=== PATIENT | female | born 1990 | race Caucasian/White ===

== ENCOUNTER 2019-05-26 11:02 | Inpatient (IN) ==
[2019-05-26] MEDS ORDERED: NS 1,000 ML IV ONE ×4 (11:23→14:36)
[2019-05-26 11:49] LABS: BASO# 0.04 X1000 (0.0-0.2); BASO% 0.2 % (0.0-0.8); HEMOGLOBIN 15.8 g/dL (12.0-16.0); IMM GRAN# 0.05 X1000 (0.0-0.04); IMM GRAN% 0.3 % (0.0-0.5); LYMPH# 0.73 X1000 (1.2-3.4); LYMPH% 3.7 % (20.5-51.1); MCH 30.8 PG (27-31); MCHC 35.1 g/dL (33-37); MCV 87.7 FL (81-99); MONO# 0.61 X1000 (0.11-0.59); MONO% 3.1 % (1.7-9.3); MPV 9.3 FL (7.4-10.4); NEUT# 18.24 X1000 (1.4-6.5); NEUT% 92.7 % (42.2-75.2); PLT 333 X1000 (130-400); RBC 5.13 XMIL (4.2-5.4); RDW 12.3 % (11.5-14.5); WBC 19.67 X1000 (4.8-10.8)
[2019-05-26 12:03] LABS: AGAP 16; ALBUMIN 5.1 g/dL (3.5-5.0); ALKALINE PHOSPHATASE 69 U/L (32-104); BUN 19 mg/dL (8-22); CALCIUM 10.3 mg/dL (8.8-10.2); CHLORIDE 105 mmol/L (98-107); COSMO 282; CREATININE 0.9 mg/dL (0.5-0.9); ESTIMATED GFR > 60; GLUCOSE 170 mg/dL (70-104); GOT 20 U/L (10-30); GPT 28 U/L (10-36); POTASSIUM 3.8 mmol/L (3.5-5.1); SODIUM 138 mmol/L (136-145); TCO2 17 mmol/L (25-35); TOTAL PROTEIN 7.8 g/dL (6.3-8.3)
[2019-05-26 13:04] LABS: INR 0.9; PROTIME 12.6 Seconds (11.0-16.0)
[2019-05-26 13:05] LABS: PTT 24.1 Seconds (22.3-41.8)
[2019-05-26] MEDS ORDERED: ZOSYN 3.375 GM in NS 50 ML IV ONE (13:08)
[2019-05-26] MEDS ORDERED: ROCEPHIN 1 GM in NS 50 ML IV ONE (13:08)
[2019-05-26 13:45] LABS: INFLUENZA A NEGATIVE (NEGATIVE); INFLUENZA B NEGATIVE (NEGATIVE)
[2019-05-26 13:52] LABS: CLARITY CLEAR (CLEAR); COLOR YELLOW; URINE BACTERIA NEGATIVE /HFP; URINE CAST NONE SEEN /LPF; URINE CRYSTAL NONE SEEN /HPF; URINE EPITHELIAL CELLS <10 /HPF (<10); URINE SOURCE CATH; URINE WBC <10 /HPF (<10); URINE YEAST PRESENT /HPF
[2019-05-26 13:53] LABS: BILIRUBIN URINE NEGATIVE (NEGATIVE); BLOOD URINE 1+ (NEGATIVE); GLUCOSE URINE NEGATIVE (NEGATIVE); KETONE URINE NEGATIVE (NEGATIVE); LEUKOCYTES URINE NEGATIVE (NEGATIVE); NITRITE URINE NEGATIVE (NEGATIVE); PH URINE 6.5; PROTEIN URINE 2+(100 mg/dL) mg/dL (NEGATIVE); SP GRAVITY URINE 1.005; UROBILINOGEN URINE NORMAL
--- NOTE | 2019-05-26 14:20 | Diag Imaging Result Doc PS360 ---
EXAM: CT ABD/PELVIS W/IV CONT ONLY 05/26/2019 HISTORY: abd pain TECHNIQUE: This exam was performed using automated exposure control, adjustment of mA or kV according to patient size, and/or use of iterative reconstruction technique. COMMENT: There are no previous studies. There is a small focus of fibrosis in the posterior costophrenic sulcus of the right lower lobe. No evidence of acute pulmonary disease is present in the visualized portion of the chest. The liver is hypodense suggesting fatty change. The adrenal glands are not enlarged. The pancreas is unremarkable in appearance. The gallbladder is slightly distended but there are no apparent stones. There is fluid throughout much of the colon and small bowel. The stomach contains fluid as well. The kidneys are without evidence of hydronephrosis or mass. The aorta is not distended. There are some prominent left periaortic nodes one of which measures over 11 mm. There is a 15 mm ileocolic mesenteric node. The appendix is not distended. Pelvis: There is some fluid in the rectum. There is a Mcdowell catheter in the bladder. There is a tiny amount of free fluid in the cul-de-sac. There appear to be bilateral ovarian follicles. There are scattered bone islands in the left femur and pelvis. There is no evidence of acute bony abnormality. IMPRESSION: 1. Hepatic steatosis. 2. Mild mesenteric adenitis. 3. Enterocolitis. Electronically signed by Pino Garg 05/26/2019 2:17 PM
--- NOTE | 2019-05-26 14:37 | PROVIDER DOCUMENTATION ---
This chart was entered by Sehrly Verma Scribe, acting as scribe for Scott Wilson CRNP. HPI-General Adult - General Chief Complaint: N/V/D Stated Complaint: V/D Time Seen by Provider: 05/26/19 11:22 Source: patient Allergies/Adverse Reactions: Patient Allergies Allergy/AdvReac Type Severity Reaction Status Date / Time clarithromycin [From Biaxin] AdvReac NAUSEA/VOMI Verified 05/26/19 11:22 TING Home Medications: Home Medication List Medication Instructions Recorded Confirmed Last Taken Type Fexofenadine [Hanny] 180 mg PO DAILY 05/26/19 05/26/19 Unknown History - History of Present Illness -Gen Adult Nature of Presenting Problems: 28 y/o female presents to ED with N/V/D, weakness, and fatigue onset this morning at 0200. Pt reports she has vomited 4 times and had diarrhea too many times to count. Pt denies pain, except for mild abdominal cramping with diarrhea episodes. Pt is alert and oriented. Location of Pain/Injury: reports: none Pain Radiation: reports: no radiation Quality of Pain: reports: none Severity: reports: mild Onset/Duration: reports: this morning Timing: reports: still present Context/Activities at Onset: reports: none Modifying Factors: improves with: nothing Associated Symptoms: reports: diarrhea, fatigue, nausea, vomiting, weakness Similar Symptoms Previously?: No Recently seen or treated by another doctor?: No Review of Systems - Adult - REVIEW OF SYSTEMS - ADULT Constitutional: reports: fatique. denies: chills, fever Eyes: reports: no symptoms reported Ears, Nose, Mouth & Throat: reports: no symptoms reported Cardiovascular: reports: no symptoms reported Respiratory: reports: no symptoms reported Gastrointestinal: reports: diarrhea, nausea, vomiting. denies: abdominal pain Genitourinary: reports: no symptoms reported Musculoskeletal: reports: no symptoms reported Integumentary: reports: no symptoms reported Neurological: reports: other (weakness). denies: dizziness/vertigo, seizure Psychiatric: reports: no symptoms reported Endocrine: reports: no symptoms reported Hematologic/Lymphatic: reports: no symptoms reported Allergic/Immunologic: reports: no symptoms reported All Other Systems: Reviewed and Negative Past History - Adult - PAST MEDICAL HISTORY-ADULT Review of Records: reports: Old Records Reviewed, Nursing Assessment Review, Medications Reviewed Major Childhood Illnesses: reports: denies history Respiratory: reports: asthma - PRIOR SURGERIES/PROCEDURES Surgical/Procedure History: reports: tonsillectomy, other (adenoidectomy, cyst removal) - IMMUNIZATION STATUS Childhood Immunizations: See Nurse Assessment Flu Vaccine: See Nurse Assessment - FAMILY HISTORY Family History: reviewed, not pertinent - SOCIAL HISTORY Smoking: non-smoker Substance Use: none/never Alcohol Use Frequency: never Living Situation: family Physical Exam-General - PHYSICAL EXAM-ADULT Initial Vital Signs Reviewed: Yes - CONSTITUTIONAL General Appearance: appears well, alert, no apparent distress - EYES Eyes: PERRL/EOMI, pink conjunctivae - HEAD, EARS, NOSE, MOUTH & THROAT HENMT: negative: moist mucous membranes (dry) - NECK Neck: non-tender, full range of motion - RESPIRATORY Respiratory: chest non-tender, lungs clear, normal breath sounds - CARDIOVASCULAR Cardiovascular: tachycardia - GASTROINTESTINAL (ABDOMEN) Abdominal Exam: normal bowel sounds, soft, tenderness (diffuse) - MUSCULOSKELETAL Back Exam: normal inspection, no CVA tenderness, no vertebral tenderness Extremity: normal range of motion, non-tender, normal gait - SKIN Integumentary: normal color, warm/dry - NEUROLOGIC Neurologic: grossly normal - PSYCHIATRIC Psych/Mental Status: normal mood/affect, normal thought content, normal thought process, oriented x 3 Progress - PLAN OF CARE/RESULTS Progress/Plan/Lab Results: Vital Signs - 8 hr 05/26/19 11:08 Temperature 98.2 F Pulse Rate 136 H Respiratory Rate 24 Blood Pressure 130/92 O2 Sat by Pulse Oximetry 99 Orders Category Date Time Status CBC WITH ELECTRONIC DIFF [HEME] Stat Lab 05/26/19 11:23 Uncollected COMPREHENSIVE METABOLIC PANEL [CHEM] Stat Lab 05/26/19 11:23 Uncollected UA NIMS W/REFLEX CULT PL [URINALYSIS] Stat Lab 05/26/19 11:23 Uncollected 0.9% Sodium Chloride Inj [Ns] 1,000 ml Med 05/26/19 11:23 Active IV 999 mls/hr 0.9% Sodium Chloride Inj [Ns] 1,000 ml Med 05/26/19 11:28 Active IV 999 mls/hr Result Diagrams: 05/26/19 11:40 05/26/19 11:40 - XRAY 1 XRAY Study: Chest Impression: See EMR Report - CT/MRI 1 CT Study: Abdomen, Pelvis Impression: See EMR Report - CONSULTS/PCP/HOSPITALIST Notification #1 *Consult/PCP/Hospitalist*: Dr Koch Time Discussed: 14:32 Reason/Comments: Fever, Sepsis Consult Disposition: Admit Departure - Departure Date of Disposition Decision: 05/26/19 Time of Disposition Decision: 14:36 DIAGNOSIS: Sepsis Qualifiers: Sepsis type: sepsis due to unspecified organism Sepsis acute organ dysfunction status: unspecified Qualified Code(s): A41.9 - Sepsis, unspecified organism Disposition: ADMITTED INPATIENT 09 Certified Medical Emergency: Emergent Condition: Critical Referrals and Follow-Ups: None,PCP [Primary Care Provider] - - Critical Care Note This patient required my direct & personal management of CC.: Yes Total Time (mins): 41 Critical Care Statement: This patient required my direct personal management to treat or rule out processes, the absence of which, could potentiallly result in sudden, clinically significant life or limb threatening deterioration. Attestation - Physician/ CROW Attestation Patient care was provided by Advanced Practice Provider:: Yes Advanced Practice Provider:: Scott Wilson Advanced Practice Provider documentation review:: The Mid-level provider documentation, treatment plan and medical decision making was reviewed by the physician who agrees with all treatment and medical decision making by the MLP. The physician spent face to face time with patient:: No Advanced Practice Provider documentation review:: Supervising physician onsite and consulted in the evaluation and care of this patient. The physician did not have a face to face encounter with the patient. This chart was documented by the indicated scribe, (Sherly Verma Scribe) and accurately reflects the services I performed and decisions made by , Scott Wilson CRNP, as attested by the provider's signature.
[2019-05-26] MEDS: NS 1,000 ML IV SCH ×2 (15:00→23:24)
--- NOTE | 2019-05-26 15:16 | Diag Imaging Result Doc PS360 ---
EXAM: CHEST-2 VIEWS 05/26/2019 HISTORY: fever TECHNIQUE: PA and lateral chest COMMENT: There are no previous studies. The left hemidiaphragm is slightly elevated. There are no focal pulmonary opacities. IMPRESSION: No evidence of acute disease. Electronically signed by Pino Garg 05/26/2019 3:13 PM
[2019-05-26] MEDS ORDERED: VANCOMYCIN IV PER PHARMACY MISC SCH (15:45)
[2019-05-26] MEDS ORDERED: VANCOMYCIN 2,000 MG in NS 500 ML IV ONE (16:00)
[2019-05-26] MEDS ORDERED: DUONEB (A & A) INH PRN (16:19)
[2019-05-26] MEDS ORDERED: PHENERGAN IV PRN (16:19)
[2019-05-26] MEDS ORDERED: SODIUM CHLORIDE 0.9% INJ PRN (16:19)
[2019-05-26] MEDS ORDERED: ZOFRAN IV PRN (16:19)
[2019-05-26] MEDS ORDERED: ROCEPHIN 1 GM in NS 50 ML IV SCH (16:23)
[2019-05-26] MEDS ORDERED: TYLENOL PO ONE (16:23)
--- NOTE | 2019-05-26 17:30 | HISTORY AND PHYSICAL ---
PRIMARY CARE PROVIDER: No one. CHIEF COMPLAINT: Nausea, vomiting, diarrhea. HISTORY OF PRESENT ILLNESS: Ms Christine Hutchinson is a 28-year-old female with a medical history of nausea, vomiting, diarrhea that started around 3 o'clock this morning. She has had multiple spells of vomiting, diarrhea, only some mild cramping occasionally with diarrhea spells. Diarrhea is brown. She has started running fever and her white count is at 19,000, lactates elevated as well. Urine is clear and imaging reveals that she had mild mesenteric adenitis and enterocolitis. Chest x-ray is actually clear but she did describe a little bit of aspiration with some shortness of breath right before coming in. Despite that she is going to be on broad- spectrum antibiotics and sepsis protocol receiving IV fluids along with it. Her only medical history is asthma and GERD. PAST MEDICAL HISTORY: 1. Asthma, last exacerbation was in October when she had pneumonia. 2. GERD. 3. Seasonal allergies. SURGICAL HISTORY: 1. Tonsillectomy and adenoidectomy. 2. Cyst removed off the back of her leg. SOCIAL HISTORY: Denies tobacco, alcohol or illicit drug use. Not , no kids. She works in [employer]. FAMILY HISTORY: Mother had breast cancer, hyperlipidemia, hypertension, diabetes and TIA. Father really was unknown. She states he was in a wreck when she was a little girl and when she was young. ALLERGIES: No true allergies. She states Biaxin when she was a little girl made her sick to her stomach likely this was just antibiotic taken on empty stomach which made her sick to her stomach. HOME MEDICATIONS: Hanny 180 mg p.o. daily please add to past medical history REVIEW OF SYSTEMS: Fourteen point review of systems are complete and all were negative for those mentioned above HPI. PHYSICAL EXAMINATION: VITAL SIGNS: Temperature 99.4 degrees, heart rate 132, respiratory rate 24, blood pressure 124/68, O2 saturation 99% on room air. GENERAL: Ms. Gaby Hutchinson is a 28-year-old female she is in no acute distress. She is able answer questions appropriately. HEENT: Atraumatic, normocephalic. Pupils equal, round, reactive to light. Extraocular movements intact. Mucous membranes are dry. NECK: Trachea midline. CARDIOVASCULAR: S1, S2. Tachycardic rate and rhythm. No rubs, gallops, murmurs, no lower extremity edema, +2 dorsalis and radial pulses. Negative JVD or carotid bruits. PULMONARY: Clear to auscultation bilateral breath sounds. No accessory muscle use or work of breathing noted. GI: Soft, round, nondistended, nontender, positive bowel sounds x4. EXTREMITIES: Moves all extremities equally. Full range of motion. NEURO: A and O x3, follows commands. Sensory is intact. SKIN: Warm, dry, intact. LABORATORY DATA: White blood cells 19,000, hemoglobin 15, hematocrit 45, platelet count 333,000, INR 0.90, PTT is 24.1. Sodium 138, potassium 3.8, BUN 19, creatinine 0.9, glucose 170, calcium 10.3, bilirubin 1.60, AST 20, ALT 28, CK 83, troponin less than 0.01, albumin is 5.1, serum lactate 4.1 and then it went up to 4.6. Urinalysis 2+ protein, 1+ blood, 10 to 20 microscopic white blood cells, negative for bacteria or nitrite and flu A and B are both negative. IMAGING: Abdominal pelvic CT, hepatic steatosis, mild mesenteric adenitis with enterocolitis and chest x-ray was negative for any acute findings. ASSESSMENT AND PLAN: 1. Intractable nausea, vomiting, diarrhea secondary to mesenteric adenitis and enterocolitis which in turn has caused sepsis. She will be started on broad-spectrum antibiotics primarily the gram negative for the enteritis and given aggressive IV fluid hydration. Will check serial lactates. 2. Sepsis secondary to gastric infection. Panculture has been ordered and started on sepsis protocol. 3. Gastroesophageal reflux disease . She only treats this symptomatically at home. 4. Asthma with a history of pneumonia in October. States that she was a little bit short of breath right before coming in that is resolved but with as many times as she has had emesis she is at risk for aspiration pneumonia. She will be monitored in the ICU and broad-spectrum antibiotics should cover this. 5. Deep venous thrombosis prophylaxis Lovenox. Dictated by HERMINIA De La Rosa for Memo Stinson MD cc: HERMINIA De La Rosa MD
[2019-05-26] MEDS: ZOSYN 3.375 GM in NS 50 ML IV SCH (20:27)
[2019-05-26] MEDS: TYLENOL PO PRN (23:23)
[2019-05-27] MEDS: ZOSYN 3.375 GM in NS 50 ML IV SCH ×4 (01:49→19:59)
[2019-05-27] MEDS: VANCOMYCIN 1,300 MG in NS 250 ML IV SCH ×2 (03:52→17:28)
[2019-05-27 06:37] LABS: BASO# 0.01 X1000 (0.0-0.2); BASO% 0.1 % (0.0-0.8); EOS# 0.04 X1000 (0.0-0.7); EOS% 0.6 % (0.0-10.0); HEMATOCRIT 37.7 % (37.0-47.0); HEMOGLOBIN 12.4 g/dL (12.0-16.0); IMM GRAN# 0.01 X1000 (0.0-0.04); IMM GRAN% 0.1 % (0.0-0.5); LYMPH# 1.02 X1000 (1.2-3.4); LYMPH% 14.8 % (20.5-51.1); MCH 30.2 PG (27-31); MCHC 32.9 g/dL (33-37); MCV 91.7 FL (81-99); MONO# 0.47 X1000 (0.11-0.59); MONO% 6.8 % (1.7-9.3); MPV 9.3 FL (7.4-10.4); NEUT# 5.36 X1000 (1.4-6.5); NEUT% 77.6 % (42.2-75.2); PLT 209 X1000 (130-400); RBC 4.11 XMIL (4.2-5.4); RDW 12.6 % (11.5-14.5); WBC 6.91 X1000 (4.8-10.8)
[2019-05-27 06:48] LABS: AGAP 9; ALBUMIN 3.6 g/dL (3.5-5.0); ALKALINE PHOSPHATASE 56 U/L (32-104); BUN 9 mg/dL (8-22); CALCIUM 7.6 mg/dL (8.8-10.2); CHLORIDE 111 mmol/L (98-107); COSMO 276; CREATININE 0.6 mg/dL (0.5-0.9); ESTIMATED GFR > 60; GLUCOSE 122 mg/dL (70-104); GOT 13 U/L (10-30); GPT 16 U/L (10-36); MAGNESIUM 1.2 mg/dL (1.5-2.7); POTASSIUM 3.5 mmol/L (3.5-5.1); SODIUM 138 mmol/L (136-145); TCO2 18 mmol/L (25-35); TOTAL PROTEIN 5.7 g/dL (6.3-8.3)
[2019-05-27] MEDS: LOVENOX SUBQ SCH (08:10)
[2019-05-27] MEDS ORDERED: MAGNESIUM SULFATE 2 GM/S.W.I. 2 GM/50 ML IVPB IV ONE (10:17)
--- NOTE | 2019-05-27 10:31 | PROGRESS NOTE ---
DATE: 05/27/2019 SUBJECTIVE: The patient reports still having a fever. No abdominal pain. Five episodes of diarrhea since yesterday. OBJECTIVE: Vital Signs: Temperature 100.4 degrees, heart rate 108, respiratory rate 16, blood pressure 132/85, O2 saturation 97% on room air. General: This is a 28-year-old female, lying in bed in no acute distress. Cardiovascular: S1, S2 heard. No murmurs, gallops, or rubs. Regular rate and rhythm. Respiratory: Clear bilaterally to auscultation. No work of breathing or using accessory muscles. Abdomen: Soft, a little bit distended. Diffuse tenderness to palpation. No signs of peritoneal irritation. Extremities: No clubbing, cyanosis, or edema. Peripheral pulses present in both legs. Neurological: The patient is alert and oriented x3. Moves all 4 extremities. LABORATORY DATA: White cell count is 6.91. Glucose 132, calcium 7.6. Magnesium 1.2. ASSESSMENT AND PLAN: 1. Sepsis secondary to gastroenteritis. The patient has been placed on intravenous fluids and also Zosyn. Her white cell count is back to normal, although she is still spiking a fever. My plan is to continue antibiotics. We can transfer this patient out of the unit today. Blood pressure is okay, and will continue checking CBC and BMP daily. 2. Diarrhea. Stools so far indicate no white cell count in the stools. The stool culture did not show any bacteria, and the stool Clostridium difficile toxin was negative, so at this point, will continue to monitor. 3. Asthma with history on pneumonia. The patient is breathing okay. No wheezing noted on physical exam. 4. Gastroesophageal reflux disease. Will continue with Protonix. 5. Disposition. Will transfer this patient out of the intensive care unit today. cc: Memo Stinson MD
[2019-05-27] MEDS: NS 1,000 ML IV SCH (10:49)
[2019-05-28] MEDS: ZOSYN 3.375 GM in NS 50 ML IV SCH ×2 (02:42→10:43)
[2019-05-28] MEDS ORDERED: NS 1,000 ML ONE (04:20)
[2019-05-28] MEDS: VANCOMYCIN 1,300 MG in NS 250 ML IV SCH (04:21)
[2019-05-28 06:38] LABS: BASO# 0.01 X1000 (0.0-0.2); BASO% 0.1 % (0.0-0.8); EOS# 0.15 X1000 (0.0-0.7); EOS% 2.2 % (0.0-10.0); HEMATOCRIT 36.2 % (37.0-47.0); IMM GRAN# 0.02 X1000 (0.0-0.04); IMM GRAN% 0.3 % (0.0-0.5); LYMPH# 2.02 X1000 (1.2-3.4); LYMPH% 29.9 % (20.5-51.1); MCH 30.1 PG (27-31); MCHC 33.1 g/dL (33-37); MCV 90.7 FL (81-99); MONO# 0.65 X1000 (0.11-0.59); MONO% 9.6 % (1.7-9.3); MPV 9.3 FL (7.4-10.4); NEUT% 57.9 % (42.2-75.2); PLT 189 X1000 (130-400); RBC 3.99 XMIL (4.2-5.4); RDW 12.2 % (11.5-14.5); WBC 6.75 X1000 (4.8-10.8)
[2019-05-28 06:58] LABS: AGAP 9; ALBUMIN 3.7 g/dL (3.5-5.0); ALKALINE PHOSPHATASE 45 U/L (32-104); BUN 3 mg/dL (8-22); CALCIUM 8.6 mg/dL (8.8-10.2); CHLORIDE 110 mmol/L (98-107); COSMO 277; CREATININE 0.6 mg/dL (0.5-0.9); ESTIMATED GFR > 60; GLUCOSE 111 mg/dL (70-104); GOT 16 U/L (10-30); GPT 17 U/L (10-36); MAGNESIUM 1.7 mg/dL (1.5-2.7); PHOSPHORUS 2.4 mg/dL (2.7-4.5); POTASSIUM 3.3 mmol/L (3.5-5.1); SODIUM 140 mmol/L (136-145); TCO2 21 mmol/L (25-35)
[2019-05-28] MEDS: OMNICEF PO SCH ×2 (10:41→20:01)
[2019-05-28] MEDS: LOVENOX SUBQ SCH (10:41)
[2019-05-28] MEDS: FLAGYL PO SCH ×3 (10:44→18:29)
--- NOTE | 2019-05-28 19:33 | PROGRESS NOTE ---
DATE: 05/28/2019 SUBJECTIVE: Patient notes she is still having some abdominal pain, although states she is starting to feel better. Notes that she had a fever in the middle of the night. Denies any current fevers or chills. States that when she attempted to drink yesterday, she started having more abdominal pain, so she stopped. OBJECTIVE: Vital Signs: T-max at midnight 101.4 degrees; T current 99.4 degrees, pulse 95, respiratory 20, BP 129/86. General: Patient is awake, currently in no distress. HEENT: Normocephalic. Neck: Supple. Cardiovascular: Regular rate. Chest: Clear. Abdomen: Soft. Diffusely minimally tender. Positive bowel sounds. Extremities: Moves all extremities. Neurologic: No changes. ASSESSMENT: 1. Gastroenteritis, appears improved. 2. Sepsis, resolved. PLAN: 1. We are going to continue patient in the hospital. 2. Continue medications. 3. Will change to oral antibiotics and will follow. 4. Will attempt to advance her diet. 5. If she improves, hopefully can discharge home soon. cc: Stefan Montelongo MD
[2019-05-28] MEDS: TYLENOL PO PRN (19:59)
[2019-05-29] MEDS: TYLENOL PO PRN (05:39)
[2019-05-29 05:44] LABS: BASO# 0.02 X1000 (0.0-0.2); BASO% 0.4 % (0.0-0.8); EOS# 0.25 X1000 (0.0-0.7); EOS% 4.7 % (0.0-10.0); HEMATOCRIT 35.2 % (37.0-47.0); IMM GRAN# 0.01 X1000 (0.0-0.04); IMM GRAN% 0.2 % (0.0-0.5); LYMPH# 1.93 X1000 (1.2-3.4); LYMPH% 36.6 % (20.5-51.1); MCH 30.4 PG (27-31); MCHC 34.1 g/dL (33-37); MCV 89.1 FL (81-99); MONO# 0.51 X1000 (0.11-0.59); MONO% 9.7 % (1.7-9.3); MPV 9.5 FL (7.4-10.4); NEUT# 2.56 X1000 (1.4-6.5); NEUT% 48.4 % (42.2-75.2); PLT 203 X1000 (130-400); RBC 3.95 XMIL (4.2-5.4); RDW 11.8 % (11.5-14.5); WBC 5.28 X1000 (4.8-10.8)
[2019-05-29 06:19] LABS: AGAP 10; ALBUMIN 3.9 g/dL (3.5-5.0); ALKALINE PHOSPHATASE 43 U/L (32-104); BUN 6 mg/dL (8-22); CHLORIDE 108 mmol/L (98-107); COSMO 281; CREATININE 0.6 mg/dL (0.5-0.9); ESTIMATED GFR > 60; GLUCOSE 102 mg/dL (70-104); GOT 22 U/L (10-30); GPT 24 U/L (10-36); MAGNESIUM 1.8 mg/dL (1.5-2.7); POTASSIUM 3.2 mmol/L (3.5-5.1); SODIUM 142 mmol/L (136-145); TCO2 24 mmol/L (25-35); TOTAL PROTEIN 6.1 g/dL (6.3-8.3)
[2019-05-29 07:20] VITALS: BP 123/83
[2019-05-29] MEDS: OMNICEF PO SCH ×2 (07:47→08:21)
[2019-05-29] MEDS: FLAGYL PO SCH ×2 (07:47→08:21)
[2019-05-29] MEDS ORDERED: KLOR-CON PO ONE (08:23)
--- NOTE | 2019-05-29 10:00 | DISCHARGE SUMMARY ---
ADMISSION DATE: 05/26/2019 DISCHARGE DATE: 05/29/2019 CONSULTATIONS: None. PERTINENT PROCEDURES: Abdomen and pelvis CT, hepatic steatosis, mild mesenteric adenitis, enterocolitis. Chest x-ray, no evidence of acute disease. DISCHARGE DIAGNOSES: 1. Gastroenteritis, improved. 2. Sepsis, resolved. 3. Gastroesophageal reflux disease. HOSPITAL COURSE: Briefly, Ms. Hutchinson is a 28-year-old female with a past medical history of nausea, vomiting, and diarrhea that had started on the day of admission at 3 in the morning. She had multiple spells of vomiting and diarrhea and mild cramping occasionally. She felt she was running a fever. She had a white count of 1900. Lactates were elevated as well. Imaging revealed mild mesenteric adenitis and enterocolitis. Chest x-ray was clear. She was found to be septic and placed on broad-spectrum antibiotics, sepsis protocol with IV fluids. She has improved over the course of her hospital stay. She is currently tolerating a GI soft diet and will be discharged home today on Flagyl and Omnicef. VITAL SIGNS: At time of her discharge, temperature is 98.2 degrees, heart rate 74, respirations 22, blood pressure 123/83, O2 is 100% on room air. DISCHARGE DIET: GI soft, advance as tolerated. DISCHARGE MEDICATIONS: 1. Hanny 180 mg p.o. daily. 2. Flagyl 500 mg p.o. t.i.d. 3. Omnicef 300 mg p.o. b.i.d. FOLLOWUP: Ms. Hutchinson is being discharged back home with self care. She is to follow up with a primary care physician of her choosing within the next 7 to 10 days. She can return to the ED or call 911 for any worsening of symptoms. Dictated by HERMINIA Vidal for Stefan Montelongo MD cc: Stefan Montelongo MD
--- NOTE | 2019-05-30 08:36 | DISCHARGE SUMMARY ---
ADMISSION DATE: 05/26/2019 DISCHARGE DATE: 05/29/2019 ADDENDUM: Patient seen and examined by myself. Full note dictated and discussed with nurse practitioner. Overall, patient is doing tremendously better. Color is improved. Tolerating a soft diet for breakfast and lunch, and therefore we will discharge her home. She rules out for sepsis on discharge. cc: Stefan Montelongo MD
== END 2019-05-29 09:56 | disposition home or self-care (01) | DRG 872 ==
LOC: P.ED 11:02 → SUATTDRO 11:03 → P.MEDSURG 11:03
PROVIDERS: ATTEND Family Medicine